=== PATIENT | male | born 1980 | race African-American/Black ===

== ENCOUNTER 2024-07-27 21:56 | Emergency (ER) | payer SELFPAY ==
[2024-07-27] MEDS: Acetaminophen 500 MG Tab PO ONE (22:54)
[2024-07-27] MEDS: Ketorolac 30 MG/ML SDV IM ONE (22:55)
[2024-07-27] MEDS: Dexamethasone 4 MG Tab PO ONE (22:55)
== END 2024-07-28 00:36 | disposition home or self-care (01) ==
LOC: MW.ED 21:56
DX: S46.012A Strain of muscle(s) and tendon(s) of the rotator cuff of left shoulder, initial encounter (principal); Y92.65 Oil rig as the place of occurrence of the external cause; Z75.8 Other problems related to medical facilities and other health care
CPT/HCPCS: 73030; 73100; 73120; 96372; 99283; A9270; J1885; J8540